=== PATIENT | female | born 1995 | race Caucasian/White ===

== ENCOUNTER → 2025-07-22 09:22 | Outpatient (CLI) | payer OTHER, SELFPAY ==
[2025-07-22 10:28] LABS: Add Manual Diff / Slide Review NO; Hematocrit 38.3 % (36-46); Hemoglobin 13.2 g/dL (12.0-16.0); Lymphocytes Absolute Auto 1800 /uL (1100-4500); Mean Corpuscular HGB Conc 34.6 % (30-36); Mean Corpuscular Hemoglobin 29.3 PG (26-34); Mean Corpuscular Volume 84.8 fL (80-100); Platelet Count 221 X10^3/uL (150-400)
[2025-07-22 10:46] LABS: Blood Urea Nitrogen 16 mg/dL (7-17); Calcium 9.7 mg/dL (8.4-10.2); Carbon Dioxide 24 mmol/L (22-32); Chloride 105 mmol/L (98-107); Estimated Glomerular Filt Rate > 60 mL/min (>60); Glucose 89 mg/dL (70-99); HEMOLYSIS < 15 (0-50); Potassium 4.3 mmol/L (3.4-5.1); Sodium 139 mmol/L (137-145)
[2025-07-22 11:17] LABS: TSH w/ Reflex to FT4 1.06 uIU/mL (0.47-4.68)
[2025-07-22 11:21] LABS: Hepatitis B Surface Antigen NEGATIVE s/c (NEGATIVE)
[2025-07-22 11:41] LABS: HIV 1 & 2 Ab/Ag 4th Gen Combo NEGATIVE (NEGATIVE); Hep C Virus Ab w/Reflex Quant NEGATIVE s/c (NEGATIVE)
== END ==
PROVIDERS: PCP Nurse Practitioner Family; Referring Provider Nurse Practitioner Family; Visit Provider Nurse Practitioner Family
DX: R63.5 Abnormal weight gain (principal)
CPT/HCPCS: 36415; 80048; 84443; 85025; 86803; 87340; 87389

== ENCOUNTER 2025-09-22 08:19 | Emergency (ER) | payer OTHER, SELFPAY ==
[2025-09-22] VITALS (14 sets, daily range): BP systolic 89–120; BP diastolic 51–70; PULSE 60–83; RESP 16–18; TEMP 36.7; O2SAT 92–100; BMI 25.7
--- NOTE | 2025-09-22 | DI.US.S_ITS ---
PROCEDURE: US PELVIC COMPLETE INDICATIONS: PAIN TECHNIQUE: Real-time scanning was performed of the pelvic organs, with image documentation. Additional endovaginal scanning was necessary due to incomplete visualization of the adnexal and endometrial structures by transabdominal scanning. COMPARISON: None. FINDINGS: Uterus: Uterus is anteverted and normal in size at 6.6 x 3.4 x 4.5 cm. The myometrium is homogeneous. The endometrium measures 11 mm combined thickness. Ovaries: The right ovary measures 3.9 x 1.8 x 4.5 cm, with a calculated ovarian volume of 16.1 cc. The left ovary measures 3.0 x 2.8 x 2.3 cm, with a calculated ovarian volume of 9.9 cc. The ovaries have a normal sonographic appearance. Greater than 12 follicles noted bilaterally. No adnexal masses are seen. Other: No pathologic free abdominal or pelvic fluid. Visualized bilateral kidneys appear normal. Left kidney measures 11.0 cm in length. Right kidney measures 10.7 cm in length. No hydronephrosis. No nephrolithiasis. The appendix is not visualized on this exam. IMPRESSION: Pelvic ultrasound without acute sonographic abnormalities. No sonographic evidence for obstructive uropathy or urolithiasis. The appendix is not visualized on this examination. However, if there is persistent clinical concern for acute appendicitis, consider further evaluation with CT of the abdomen and pelvis. Incidental note of prominent ovarian volumes with greater than 12 follicles visualized in the bilateral ovaries. Findings meet the [place] definition of polycystic ovaries. In the absence of ovulatory dysfunction or clinically/biochemically diagnosed hyperandrogenism, findings are non specific and do not indicate the presence of polycystic ovarian syndrome. We strive to produce accurate, complete, and clear reports of imaging services. To assist us in improving patient care, this report was composed using standard report templates and voice recognition software. Therefore, it may contain abnormal punctuation, insertions and/or omissions. Occasional wrong-word or sound-alike substitutions may occur. Though we review the report and make efforts to correct it, we do recommend that the report be read carefully in proper context to recognize any text inaccuracies. Dictated by: Quinton Clarke M.D. on 09/22/2025 at 10:01 Approved by: Quinton Clarke M.D. on 09/22/2025 at 10:05
--- NOTE | 2025-09-22 08:52 | ED.GENADULT ---
HPI - General Adult General Chief complaint: Abdominal Pain Stated complaint: abd px 3days getting worse Time Seen by Provider: 09/22/25 08:49 Source: patient, RN notes reviewed and old records reviewed Mode of arrival: Ambulatory Limitations: no limitations History of Present Illness HPI narrative: 29-year-old female no reported medical issues presents with a complaint of lower abdominal pain that started on the left side now radiates over to the right. Patient states started on Sunday has been persistent waxing and waning in intensity. Patient states nothing seems to make it worse or better. She noted after urinating it seemed a little bit worse but did not have any urinary discomfort. Denies fevers or chills. No nausea or vomiting. No back or flank pain. Normal bowel movements with no diarrhea or constipation, no black or bloody stools reported. No dysuria urgency or frequency. No new vaginal discharge or bleeding. Patient states last menstrual period was a proximally week ago. Patient states no daily medications. No prior surgeries. Has not allergy to sulfa develops rash. No tobacco, alcohol or recreational drugs. She is accompanied by her spouse. Related Data Home Medications ?Medication ?Instructions ?Recorded ?Confirmed No Known Home Medications 07/22/25 09/22/25 Allergies Allergy/AdvReac Type Severity Reaction Status Date / Time Sulfa (Sulfonamide Allergy Mild Rash Verified 09/22/25 08:50 Antibiotics) Review of Systems Review of Systems ROS Unobtainable: All systems reviewed & are unremarkable except as noted in HPI and below Patient History Medical History Eczema of both external ears Social History Smoking Status: Never smoker Exam Narrative Exam Narrative: GENERAL: Alert and oriented x three, female in mild distress HEENT: Head normocephalic, atraumatic, EOMI, pupils reactive, face symmetric, moist mucous membranes NECK: Supple, full range of motion CARDIOVASCULAR: Regular rate and rhythm without murmurs, rubs or gallops. RESPIRATORY: Breath sounds equal bilaterally, no wheezes rales or rhonchi. ABDOMEN: Soft, positive for tenderness right lower quadrant greater than left lower quadrant but present in both. Normoactive bowel sounds all 4 quadrants. No guarding or rebound, rigidity, no mass : No CVA tenderness EXTREMITIES: Normal range of motion, no clubbing or edema. Neurovascularly intact NEUROLOGICAL: Cranial nerves II through XII grossly intact. Moving all extremities SKIN: Warm, dry, no petechiae, no rashes or lesions. Initial Vital Signs Initial Vital Signs: Vital Signs Pulse Rate 75 09/22/25 08:38 Pulse Oximetry 92 09/22/25 08:38 Course Orders Ordered: Discontinued Medications Ondansetron HCl (Ondansetron 4 Mg/2 Ml Inj) 4 mg IV NOW PRN PRN Reason: Nausea And Vomiting Ondansetron HCl (Ondansetron 4 Mg Odt) 4 mg PO NOW PRN PRN Reason: Nausea And Vomiting Vital Signs Vital signs: Vital Signs - 8 hr 09/22/25 08:38 09/22/25 08:39 09/22/25 08:39 Temperature Pulse Rate 75 83 Respiratory Rate Blood Pressure 120/70 Pulse Oximetry 92 100 Oxygen Delivery Method 09/22/25 08:51 09/22/25 08:57 09/22/25 08:57 Temperature 98.1 F Pulse Rate 77 60 Respiratory Rate 18 Blood Pressure 120/70 105/59 L Pulse Oximetry 100 98 Oxygen Delivery Method Room Air 09/22/25 09:00 09/22/25 09:00 09/22/25 09:30 Temperature Pulse Rate 80 68 Respiratory Rate Blood Pressure 105/65 Pulse Oximetry 99 100 Oxygen Delivery Method 09/22/25 10:00 09/22/25 10:00 09/22/25 10:10 Temperature Pulse Rate 66 Respiratory Rate Blood Pressure 103/51 L 89/51 L Pulse Oximetry 99 Oxygen Delivery Method 09/22/25 10:10 09/22/25 10:15 09/22/25 10:15 Temperature Pulse Rate 68 75 Respiratory Rate Blood Pressure 101/55 L Pulse Oximetry 98 100 Oxygen Delivery Method 09/22/25 10:16 09/22/25 10:30 09/22/25 10:30 Temperature Pulse Rate 65 Respiratory Rate Blood Pressure 101/55 L 109/57 L Pulse Oximetry 100 Oxygen Delivery Method 09/22/25 11:00 09/22/25 11:00 09/22/25 11:30 Temperature Pulse Rate 66 74 Respiratory Rate Blood Pressure 102/51 L Pulse Oximetry 100 100 Oxygen Delivery Method 09/22/25 11:30 09/22/25 12:48 Temperature Pulse Rate 64 Respiratory Rate 16 Blood Pressure 104/57 L 107/60 Pulse Oximetry 98 Oxygen Delivery Method Medical Decision Making Lab Data 09/22/25 08:48 09/22/25 08:48 Labs: Lab Results 09/22/25 09/22/25 Range/Units 08:48 08:55 WBC 8.0 (4.5-11.0) X10^3/uL RBC 4.56 (4.0-5.2) X10^6/uL Hgb 13.2 (12.0-16.0) g/dL Hct 38.8 (36-46) % MCV 85.0 (80-100) fL MCH 29.0 (26-34) PG MCHC 34.1 (30-36) % RDW 13.4 (11.6-14.8) % Plt Count 201 (150-400) X10^3/uL Neut % (Auto) 73.3 (50-75) % Lymph % (Auto) 20.2 L (25-40) % [place] % (Auto) 5.5 (3-14) % Eos % (Auto) 0.5 L (2-4) % Baso % (Auto) 0.5 (0-2) % Neut # (Auto) 5900 (8752-3053) /uL Lymph # (Auto) 1600 (2194-2989) /uL [place] # (Auto) 400 (0-900) /uL Eos # (Auto) 0 (0-450) /uL Baso # (Auto) 0 (0-100) /uL Sodium 141 (137-145) mmol/L Potassium 4.4 (3.4-5.1) mmol/L Chloride 106 (98-107) mmol/L Carbon Dioxide 26 (22-32) mmol/L BUN 12 (7-17) mg/dL Creatinine 0.57 (0.52-1.04) mg/dL Estimated GFR > 60 (>60) mL/min BUN/Creatinine Ratio 21.1 (6-22) Glucose 93 (70-99) mg/dL Calcium 9.1 (8.4-10.2) mg/dL Total Bilirubin 0.9 (0.2-1.3) mg/dL AST 25 (14-36) IU/L ALT 15 (<35) IU/L Alkaline Phosphatase 50 (38-126) U/L Total Protein 8.3 H (6.3-8.2) g/dL Albumin 4.7 (3.5-5.0) g/dL Globulin 3.6 (1.7-4.1) g/dL Albumin/Globulin Ratio 1.3 (1.0-2.8) Lipase 73 (23-300) U/L Urine RBC 1-5/hpf (0-5/HPF) Urine WBC 1-5/hpf (0-5/HPF) Ur Squamous Epith Cells 1-5 /hpf (0-5/HPF) Urine Bacteria Occasional (0-1) (None) Ur Culture Indicated? Cult not indicated Vol Urine Centrifuged 10ml (spun) Point of Care Testing Test Results Negative Urine Dip Bedside Urine Glucose Negative Bedside Urine Bilirubin - Negative Bedside Urine Ketone - Negative Urine Specific [place] 1.010 Bedside Urine Occult Blood + Bedside Urine pH 7.0 Bedside Urine Protein - Negative Bedside Urine Urobilinogen - Negative Bedside Urine Nitrite - Negative Bedside Urine Leukocytes + 70 Esterase Point of care testing: Point of Care Testing Test Results Negative Urine Dip Bedside Urine Glucose Negative Bedside Urine Bilirubin - Negative Bedside Urine Ketone - Negative Urine Specific [place] 1.010 Bedside Urine Occult Blood + Bedside Urine pH 7.0 Bedside Urine Protein - Negative Bedside Urine Urobilinogen - Negative Bedside Urine Nitrite - Negative Bedside Urine Leukocytes + 70 Esterase MDM Narrative Medical decision making narrative: 29-year-old female with lower abdominal pain started in the left lower quadrant but now on both sides on exam she is actually more tender in the right lower quadrant but negative for Rovsing sign. No flank pain. Patient is healthy with no prior surgeries. Labs show normal white count, hemoglobin and platelets, chemistries are appropriate BUN and creatinine is normal, LFTs are normal. Urine shows blood and leuks, micro shows 1-5 red cells 1-5 white cells 1-5 squamous 1 bacteria. Pelvic ultrasound, pelvic ultrasound shows no acute sonographic abnormalities, appendix not visualized on exam, incidental no prominent ovarian volumes greater than 12 follicles visualized bilateral ovaries findings may definition of polycystic ovaries. No adnexal masses. No pathologic free abdominal fluid. Bilateral kidneys appear normal left kidney measures 11 cm right kidney measures 10.7 cm no hydro no known nephrolithiasis appendix isn't visualized. CT abdomen pelvis, so acute abnormalities normal appendix. Diffuse hypotension in the liver parenchyma relative a spleen compatible with hepatic steatosis. Discharge Plan Departure Patient Disposition: Home Clinical Impression: Abdominal pain Instructions: DI for Abdominal Pain-Adult Activity Restrictions/Additional Instructions: Your workup today did show changes on your ultrasound consistent with polycystic ovaries, the only other changes as you has a little bit of change to your liver you could potentially has a little bit of hepatic steatosis. Continue with the acetaminophen up to a 1000 mg every 6 hours and/or ibuprofen up to 600 mg every 6 hours as needed for pain. Please return for fevers, new or worsening abdominal back or flank pain, persistent vomiting, black or bloody stools, new urinary symptoms or other new or concerning changes. Prescriptions: No Action No Known Home Medications Referrals: Wen Hahn, [facility] [Primary Care Provider, Family Practice] Stand Alone Forms: Patient Portal/API
[2025-09-22 08:57] LABS: Add Manual Diff / Slide Review NO; Hematocrit 38.8 % (36-46); Hemoglobin 13.2 g/dL (12.0-16.0); Lymphocytes Absolute Auto 1600 /uL (1100-4500); Mean Corpuscular HGB Conc 34.1 % (30-36); Mean Corpuscular Hemoglobin 29.0 PG (26-34); Mean Corpuscular Volume 85.0 fL (80-100); Platelet Count 201 X10^3/uL (150-400)
[2025-09-22 09:10] LABS: Alanine Aminotransferase 15 IU/L (<35); Albumin 4.7 g/dL (3.5-5.0); Albumin Globulin Ratio 1.3 (1.0-2.8); Alkaline Phosphatase 50 U/L (38-126); Blood Urea Nitrogen 12 mg/dL (7-17); Calcium 9.1 mg/dL (8.4-10.2); Carbon Dioxide 26 mmol/L (22-32); Chloride 106 mmol/L (98-107); Estimated Glomerular Filt Rate > 60 mL/min (>60); Globulin 3.6 g/dL (1.7-4.1); Glucose 93 mg/dL (70-99); Lipase 73 U/L (23-300); Potassium 4.4 mmol/L (3.4-5.1); Sodium 141 mmol/L (137-145); Total Protein 8.3 g/dL (6.3-8.2)
[2025-09-22 09:11] LABS: HEMOLYSIS 63 (0-50)
[2025-09-22 09:24] LABS: Culture Indicated Urine Cult Not Indicated
--- NOTE | 2025-09-22 11:45 | DI.CT.S_ITS ---
PROCEDURE: CT ABDOMEN PELVIS W CON INDICATIONS: abd pain, R>L, tender R TECHNIQUE: After the administration of intravenous contrast, axial sections acquired from the lung bases to the pubic symphysis. Coronal and sagittal reformats were performed. For radiation dose reduction, the following was used: automated exposure control, adjustment of mA and/or kV according to patient size. COMPARISON: [facility], , PELVIC COMPLETE, 09/22/2025, 9:16. FINDINGS: Image quality: Diagnostic. Lower Chest: No significant findings. ABDOMEN: Liver: No solid mass. There is diffuse hypoattenuation of the liver parenchyma relative to the spleen compatible with hepatic steatosis. Gallbladder: No radiopaque gallstones or wall thickening. Biliary ducts: No biliary dilation. Pancreas: No ductal dilation. Spleen: Size is within normal limits. Adrenal Glands: No adrenal nodules. Kidneys and Ureters: No hydronephrosis. No solid mass. No complex renal cystic lesion which requires follow up. Stomach and Bowel: Normal colonic caliber, without significant wall thickening. Normal appendix. No evidence for small bowel obstruction or associated inflammatory changes. Moderate fecal burden scattered throughout the colon. Peritoneum: No abnormal intraperitoneal fluid. No free air. Ventral Wall: There is a fat-containing umbilical hernia without acute inflammation. Abdominal Nodes: No retroperitoneal or mesenteric adenopathy by size criteria. Vessels: Aorta and inferior vena cava are normal in size. PELVIS: Pelvic Organs: Unremarkable. Bladder: No bladder wall thickening, accounting for underdistention. Pelvic Nodes: No enlarged lymph nodes. Miscellaneous: No inguinal hernias are seen. Minimal pelvic free fluid likely physiologic. Bones: No aggressive osseous abnormality. Visualized osseous structures appear intact without acute fracture or focal destructive lesion. No acute compression fractures of the imaged spine. IMPRESSION: CT abdomen and pelvis without acute abnormalities. Normal appendix. Other chronic/non-acute findings as above. Dictated by: Quinton Clarke M.D. on 09/22/2025 at 12:26 Approved by: Quinton Clarke M.D. on 09/22/2025 at 12:30
== END 2025-09-22 13:13 | disposition home or self-care (01) ==
PROVIDERS: Emergency Provider Emergency Medicine; PCP Nurse Practitioner Family
DX: R10.32 Left lower quadrant pain (principal)
CPT/HCPCS: 36415; 74177; 76856; 80053; 81003; 81015; 81025; 83690; 85025; 93975; 99283; 99284; Q9967